=== PATIENT | female | born 1990 | race Caucasian/White ===

== ENCOUNTER 2017-05-02 05:06 | Observation (INO) | payer SELFPAY ==
[~2017-05-02] VITALS: Ht 154.9 cm; Wt 67.2 kg
[~2017-05-02 05:06] MED LIST: NOHOMEMEDS
[2017-05-02 05:48] LABS: BASOPHIL (%) 0.3 % (0-1); BASOPHIL COUNT 0.1 K/uL (0-0.1); EOSINOPHIL (%) 0.4 % (0-5); EOSINOPHIL COUNT 0.1 K/uL (0-0.3); HEMATOCRIT 43.3 % (36.0-46.0); HEMOGLOBIN 14.1 G/DL (11.9-15.5); IMMATURE GRANULOCYTE (%) 0.4 % (0.0-0.7); LYMPHOCYTE (%) 8.9 % (15-42); LYMPHOCYTE COUNT 1.4 K/uL (1.0-2.8); MCH 33.7 PG (29.0-34.0); MCHC 32.6 G/DL (30.0-36.0); MCV 103.3 FL (83-99); MONOCYTE (%) 7.3 % (3-12); MONOCYTE COUNT 1.2 K/uL (0-0.8); NEUTROPHIL (%) 82.7 % (45-76); NEUTROPHIL COUNT 13.2 K/uL (1.8-6.4); PLATELET COUNT 185 K/uL (156-360); RBC DIS.WIDTH-CV 14.7 % (11.8-14.6); RBC DIS.WIDTH-SD 55.6 % (39-53); RED BLOOD COUNT 4.19 M/uL (3.80-5.20); WHITE BLOOD COUNT 15.9 K/uL (4.1-10.2)
[2017-05-02 05:58] LABS: ALBUMIN 4.3 g/dL (3.2-4.8); CHLORIDE 104 mEq/L (99-109); POTASSIUM 3.9 mEq/L (3.7-5.4); SODIUM 142 mEq/L (136-147)
[2017-05-02 06:01] LABS: GLUCOSE 124 mg/dL (70-99); TOTAL PROTEIN 7.2 g/dL (6.4-8.3)
[2017-05-02 06:03] LABS: TOTAL BILIRUBIN 0.4 mg/dL (0.0-1.0)
[2017-05-02 06:04] LABS: ALKALINE PHOSPHATASE 77 IU/L (3-129); CREATININE 0.8 mg/dL (0.6-1.3); GFR ESTIMATE (CALCULATED) > 59 mL/min/
[2017-05-02 06:05] LABS: UREA NITROGEN (BUN) 12 mg/dL (9-23)
[2017-05-02 06:06] LABS: AST (GOT) 14 IU/L (2-34)
[2017-05-02 06:07] LABS: ALT (GPT) 12 IU/L (3-49)
[2017-05-02 06:49] LABS: APPEARANCE TURBID ((CLEAR)); BILIRUBIN NEGATIVE; BLOOD NEGATIVE; COLOR YELLOW ((YELLOW)); GLUCOSE (STRIP) NEGATIVE; KETONES NEGATIVE; LEUKOCYTES NEGATIVE; NITRITE NEGATIVE; PROTEIN (STRIP) NEGATIVE; SPECIFIC GRAVITY 1.016 (1.000-1.030); UROBILINOGEN 0.2 MG/DL (0.2-1.0)
[2017-05-02 07:22] LABS: EPITHELIAL CELLS RARE /HPF; MUCUS NONE SEEN /LPF; RED BLOOD CELLS 0-5 /HPF (0-5); WHITE BLOOD CELLS 0-5 /HPF (0-5)
[2017-05-02 07:23] LABS: BACTERIA RARE /HPF; FINE GRANULAR CASTS 0-5 /LPF; UCUL ADDED? NO
[2017-05-02] MEDS ORDERED: ADDERALL20 MG PO (17:00)
[2017-05-02 21:35] VITALS: BP 111/68
[2017-05-02 23:15] VITALS: BP 98/60
[2017-05-03 06:28] LABS: CHLORIDE 111 MEQ/L (99-109); CREATININE 0.9 MG/DL (0.6-1.3); GFR ESTIMATE (CALCULATED) > 59 mL/min/; GLUCOSE 94 mg/dL (70-99); POTASSIUM 3.6 MEQ/L (3.7-5.4); SODIUM 142 MEQ/L (136-147); UREA NITROGEN (BUN) 10 mg/dL (9-23)
[2017-05-03 07:30] LABS: HEMATOCRIT 37.3 % (36.0-46.0); MCH 33.6 PG (29.0-34.0); MCHC 32.4 G/DL (30.0-36.0); MCV 103.6 FL (83-99); PLATELET COUNT 166 K/uL (156-360); RBC DIS.WIDTH-CV 14.7 % (11.8-14.6); RBC DIS.WIDTH-SD 56.2 % (39-53); WHITE BLOOD COUNT 7.8 K/uL (4.1-10.2)
[2017-05-03 07:31] LABS: HEMOGLOBIN 12.1 G/DL (11.9-15.5)
[2017-05-03 08:55] VITALS: BP 95/69
[2017-05-03 10:47] VITALS: BP 109/58
[2017-05-03 15:40] VITALS: BP 96/56
[2017-05-03] MEDS ORDERED: TORADOL10 MG PO (16:48)
== END 2017-05-03 19:07 | disposition home or self-care (01) ==
LOC: EME 05:06 → EDOF 11:30 → ENRESERV 11:35 → 5WEST 21:26
PROVIDERS: Emergency Medicine; Internal Medicine
DX: N13.2 Hydronephrosis with renal and ureteral calculous obstruction (principal); F17.200 Nicotine dependence, unspecified, uncomplicated
CPT/HCPCS: 74176; 80048; 80053; 81003; 84703; 85025; 85027; 99281; 99285; G0378; J1885; J2270; J2405; J7030; S0028